=== PATIENT | male | born 2000 | race Caucasian/White ===

== ENCOUNTER 2022-09-19 18:11 | Emergency (ER) | payer OTHER, SELFPAY ==
[2022-09-19 18:31] VITALS: BP 120/59; PULSE 61; RESP 16; TEMP 36.6; O2SAT 99; BMI 25.1
--- NOTE | 2022-09-19 18:52 | ED.WOUNDLAC ---
HPI - Wound/Laceration General Chief Complaint: Wound/Laceration Stated Complaint: laceration to lip Time Seen by Provider: 09/19/22 18:52 Source: patient Mode of arrival: ambulatory Limitations: no limitations History of Present Illness HPI narrative: 22 yo male presents to the ER for evlauation of a right upper lip laceration sustained earlier today while playing basketball. He states he has an elbow to the face and it cut his right upper lip. The laceration is small but slightly irregularly shaped. No active bleeding. No dental trauma or other facial trauma. Unknown Tdap. Onset (ago): hour(s) Location: face Place: school Patient tetanus UTD: No Context: accidental Associated symptoms: none Related Data Allergies Allergy/AdvReac Type Severity Reaction Status Date / Time No Known Allergies Allergy Verified 09/19/22 18:31 Review of Systems Review of Systems: Constitutional: No Fever, No Chills ENT/Mouth: No sore throat, No Rhinorrhea, No Swallowing Difficulty, No dental pain Eyes: No Eye Pain, Cardiovascular: No Chest Pain, No SOB Respiratory: No Cough, No Sputum Gastrointestinal: No Nausea, No Vomiting Musculoskeletal: No joint pain, No Myalgias Skin: + Skin Lesions, No rash Neuro:No Dizziness, No Headache Heme/Lymph: No Bruising PMFSH Social History Social History Advance Directives: No Advance Directives Information Provided: No Physical Exam Vital Signs: Vital Signs: Last Vital Signs Temp 97.9 F 09/19/22 18:31 Pulse 61 09/19/22 18:31 Resp 16 09/19/22 18:31 BP 120/59 L 09/19/22 18:31 Pulse Ox 99 09/19/22 18:31 O2 Del Method 09/19/22 18:31 BMI result Body Mass Index 25.1 Appearance: Alert. Oriented X3. No acute distress. HEENT: upper lip on the right side is a 0.5cm irregularly shaped superficial laceration involving the araseli ordered, not a through and through. teeth are normal CVS: Normal heart rate and rhythm. Pulses normal. Respiratory: No respiratory distress. Skin: Skin warm and dry. Normal skin color. Normal skin turgor. No rashes. Extremities: normal inspection x4. normal ROM Neuro: Oriented X 3. nonfocal Course Course Course Narrative: 22 yo male presenting with right upper lip lac after elbow to the face while playing basketball. Amenable to suture closure for optimal healing. see procedure note. wound care discussed, stable for d/c home. tdap given Procedures Laceration Laceration 1: Site: lip Side (If applicable): right Size (cm): 0.5 Description: irregular Depth: simple, single layer Local Anesthetic: lidocaine 1% Amount of anesthesia used (mL): 0.5 Pre-repair: wound explored and irrigated extensively Skin layer closed with: other (absorbable) Size (cm): 5-0 Number of sutures: 2 Technique: simple, interrupted Discharge Plan Discharge Clinical Impression: Laceration of lip Patient Disposition: Home, Self-Care Instructions: Facial Laceration (ED) Additional Instructions: Two absorbable sutures were used to close your lip wound today. The will dissolve on their own. Do not pick at them. Use ice to the area several times per day. Take Motrin and/or Tylenol as needed for pain
[2022-09-19] MEDS: Diphth,Pertus(ACell),Tet Adult 0.5 ML SYRINGE IM (19:50)
== END 2022-09-19 19:55 | disposition home or self-care (01) ==
PROVIDERS: Emergency Provider Emergency Medicine
DX: S01.511A Laceration without foreign body of lip, initial encounter (principal); S00.81XA Abrasion of other part of head, initial encounter; Y29.XXXA Contact with blunt object, undetermined intent, initial encounter; Y93.67 Activity, basketball; Y92.310 Basketball court as the place of occurrence of the external cause; Y99.9 Unspecified external cause status
CPT/HCPCS: 12011; 90471; 90715; 99282; 99284